=== PATIENT | male | born 1975 | race Caucasian/White ===

== ENCOUNTER 2020-01-19 01:33 | Inpatient (IN) | payer MEDICAID ==
[~2020-01-19] VITALS: Ht 180.3 cm; Wt 88.6 kg
[~2020-01-19 01:33] MED LIST: CEPH-357 PO; HYDR1TAB PO; IBUP-1051 PO; MELO-83 PO; NAPR-56 PO; clindamycin; norco; sulfa
[2020-01-19] MEDS ORDERED: CefTRIAXone 2gm/D5W 50ml BAG 50 ML IV ONE (03:10)
[2020-01-19] MEDS ORDERED: morphine 4 MG/ML inj SYRINge IV ONE (03:10)
[2020-01-19] MEDS ORDERED: normal saline 1000ML IV soln IV ONE (03:10)
[2020-01-19] MEDS ORDERED: vancomycin/NS 1 GM ADD-VANTAGE 250 ML IV ONE (03:10)
[2020-01-19] MEDS ORDERED: ondansetron/PF 4mg/2ml inj IV ONE (03:10)
[2020-01-19] MEDS ORDERED: iohexol 300mg/ml 100ml inj. ONE (03:51)
[2020-01-19 03:52] LABS: HEMATOCRIT 42.4 % (42.0-52.0); HEMOGLOBIN 14.2 g/dl (14.0-17.9); RED BLOOD COUNT 4.99 X10'6 (4.70-6.10); WHITE BLOOD COUNT 16.5 X10'3 (4.5-11.0)
[2020-01-19 03:53] LABS: BASOPHILS # (AUTO) 0.1 X10'3 (0-0.2); BASOPHILS % (AUTO) 0.8 % (0-1); EOSINOPHILS % (AUTO) 0.2 % (0-6); LYMPHOCYTES # (AUTO) 1.5 X10'3 (1.1-4.8); LYMPHOCYTES % (AUTO) 9.3 % (21-51); MEAN CORPUSCULAR HEMOGLOBIN 28.4 PG (27.0-31.0); MEAN CORPUSCULAR HGB CONC 33.5 g/dL (33.0-36.5); MEAN CORPUSCULAR VOLUME 84.9 FL (78-98); MEAN PLATELET VOLUME 6.7 FL (7.4-10.4); MONOCYTES # (AUTO) 1.6 X10'3 (0-0.9); MONOCYTES % (AUTO) 9.5 % (2-12); NEUTROPHILS # (AUTO) 13.2 X10'3 (1.8-7.7); NEUTROPHILS % (AUTO) 80.2 % (42-75); PLATELET COUNT 278 X10'3 (140-440); RED CELL DISTRIBUTION WIDTH 13.6 % (11.5-14.5)
[2020-01-19 04:09] LABS: ALANINE AMINOTRANSFERASE 32 U/L (12-78); ALBUMIN 3.5 G/DL (3.4-5.0); ALBUMIN/GLOBULIN RATIO 0.8 (1.1-1.5); ALKALINE PHOSPHATASE 70 IU/L (46-116); ANION GAP 8 (8-16); ASPARTATE AMINO TRANSFERASE 12 U/L (10-37); BILIRUBIN,TOTAL 0.8 MG/DL (0.1-1.0); BLOOD UREA NITROGEN 9 MG/DL (7-18); BUN/CREATININE RATIO 9.3 (5.4-32.0); CALCIUM 8.8 MG/DL (8.5-10.1); CHLORIDE 100 MMOL/L (99-107); CREATININE 0.97 MG/DL (0.60-1.10); GLUCOSE 124 MG/DL (70-104); MAGNESIUM 1.8 MG/DL (1.5-2.4); POTASSIUM 4.1 MMOL/L (3.5-5.1); SODIUM 137 MMOL/L (135-145); TOTAL CARBON DIOXIDE 29.1 MMOL/L (24-32); TOTAL PROTEIN 7.8 G/DL (6.4-8.2); eGFR 84 ML/MIN
[2020-01-19] MEDS ORDERED: LIDOcaine 1% w/epiNEPHrine 1:200,000 30ml vial IJ ONE (07:35)
[2020-01-19] MEDS ORDERED: TETanus/Pertussis (Acell)/Diphther VAC/PF (Tdap-Adult) 0.5ml syringe IMVAC ONE (07:35)
[2020-01-19] MEDS ORDERED: LIDOcaine 1% W/epiNEPHrine 1:200,000 10ml vial IJ ONE (07:35)
[2020-01-19 07:42] LABS: CLARITY,URINE CLEAR (Clear); COLOR,URINE STRAW (Yellow); GLUCOSE, URINE NEGATIVE (Neg); KETONES,URINE NEGATIVE (Neg); LEUKOCYTE ESTERASE ,URINE NEGATIVE (Neg); NITRITES, URINE NEGATIVE (Neg); OCCULT BLOOD,URINE NEGATIVE (Neg); PH,URINE 6.5 (4.8-8.0); PROTEIN,URINE NEGATIVE (Neg); UA COLLECTION TYPE VOIDED; UROBILINOGEN,URINE 0.2 E.U/dL (0.2-1.0)
[2020-01-19 07:52] LABS: URINE AMPHETAMINE SCREEN POSITIVE (Neg); URINE BARBITUATE SCREEN NEGATIVE (Neg); URINE BENZODIAZEPINES SCREEN NEGATIVE (Neg); URINE CANNABINOID SCREEN POSITIVE (Neg); URINE COCAINE SCREEN NEGATIVE (Neg); URINE METHADONE SCREEN NEGATIVE (Neg); URINE OPIATE SCREEN POSITIVE (Neg); URINE PHENCYCLIDINE SCREEN NEGATIVE (Neg)
[2020-01-19] MEDS ORDERED: NO HOME MEDS (09:17)
[2020-01-19] MEDS ORDERED: magnesium 2GM in 50ml NS 50 ML IV PRN (09:20)
[2020-01-19] MEDS ORDERED: potassium Cl 20 mEq SR tablet PO PRN ×2 (09:20)
[2020-01-19] MEDS ORDERED: morphine 2 MG/ML inj. syringe IV PRN ×2 (09:20)
[2020-01-19] MEDS ORDERED: magnesium 4gm in 100ml NS 100 ML IV PRN (09:20)
[2020-01-19] MEDS ORDERED: HYDROcodone/acetaminophen 5mg/325mg tablet PO PRN (09:20)
[2020-01-19] MEDS ORDERED: potassium CL 10mEq/100ml bag 100 ML IV PRN ×2 (09:20)
[2020-01-19] MEDS ORDERED: ondansetron/PF 4mg/2ml inj IV PRN (09:20)
[2020-01-19] MEDS ORDERED: acetaminophen 325mg tablet PO PRN ×2 (09:20)
[2020-01-19] MEDS ORDERED: magnesium Cl slow-release 64mg tablet PO PRN (09:20)
[2020-01-19 09:42] LABS: COLOR,SYNOVIAL FLUID OTHER
[2020-01-19] MEDS: normal saline 1000ml 1,000 ML IV SCH ×2 (09:42→20:39)
[2020-01-19 09:43] LABS: APPEARANCE,SYNOVIAL FLUID CLOUDY; SYN RBC 14900 /CU MM (0); SYN WBC 788 /CU MM (0-200)
[2020-01-19] MEDS ORDERED: LORazepam 1 MG tablet PO PRN (09:55)
[2020-01-19] MEDS ORDERED: LORazepam 2 mg/ml vial IV PRN (09:55)
--- NOTE | 2020-01-19 10:30 | NUR ---
Patient in room [facility]. I have received report from Tierra NEWELL from ED and had the opportunity to ask questions and assume patient care.
[2020-01-19] MEDS: HYDROcodone/acetaminophen 10/325mg tab PO PRN ×2 (14:21→20:33)
--- NOTE | 2020-01-19 18:30 | NUR ---
Patient in room [facility]. I have received report from OSIRIS Benson and had the opportunity to ask questions and assume patient care. Addendum: 01/19/20 at 1937 by Seth Rockwell RN Amended: Links added.
--- NOTE | 2020-01-19 18:36 | NUR ---
Problems reprioritized. Patient report given, questions answered & plan of care reviewed with Trinidad NEWELL.
[2020-01-19 19:00] VITALS: BP 130/87
[2020-01-19] MEDS: K and/or MAG REPLACEMENT MC SCH (20:00)
[2020-01-19] MEDS: lactobacillus rhamnosus 10,000 MMU CELLS/CAPSULE PO SCH (20:32)
[2020-01-19] MEDS: docusate sod 100mg capsule PO SCH (20:32)
[2020-01-19] MEDS: heparin, porcine 5000 units/ml vial SQ SCH (20:34)
[2020-01-19] MEDS: doxycycline inj 100 MG in normal saline 100ml IV soln 100 ML IV SCH (20:38)
[2020-01-19] MEDS ORDERED: nicotine 14mg patch - 24hr TD SCH (21:00)
[2020-01-19] MEDS ORDERED: temazepam 15mg capsule PO PRN (21:00)
[2020-01-19 23:30] VITALS: BP 100/51
--- NOTE | 2020-01-19 23:45 | NUR ---
Pt unsure if wants flu and pnemonia vaccine, states to ask him again in morning and will decide. Addendum: 01/19/20 at 2346 by Seth Rockwell RN Amended: Links added.
--- NOTE | 2020-01-20 01:03 | NUR ---
A person named Emely has called x2 requesting to speak with nurse and would like nurse to call her back. I asked pt if he wanted me to talk to her and is it okay to give her information. Pt states "No, I will call her" Addendum: 01/20/20 at 0105 by Seth Rockwell RN Amended: Links added.
[2020-01-20] MEDS: HYDROcodone/acetaminophen 10/325mg tab PO PRN ×3 (04:32→20:24)
[2020-01-20 05:15] LABS: BASOPHILS # (AUTO) 0.1 X10'3 (0-0.2); BASOPHILS % (AUTO) 0.7 % (0-1); EOSINOPHILS # (AUTO) 0.1 X10'3 (0-0.9); EOSINOPHILS % (AUTO) 0.8 % (0-6); HEMATOCRIT 40.2 % (42.0-52.0); HEMOGLOBIN 13.4 g/dl (14.0-17.9); LYMPHOCYTES # (AUTO) 1.9 X10'3 (1.1-4.8); LYMPHOCYTES % (AUTO) 11.6 % (21-51); MEAN CORPUSCULAR HGB CONC 33.4 g/dL (33.0-36.5); MEAN CORPUSCULAR VOLUME 86.7 FL (78-98); MONOCYTES # (AUTO) 1.5 X10'3 (0-0.9); MONOCYTES % (AUTO) 9.1 % (2-12); NEUTROPHILS # (AUTO) 12.8 X10'3 (1.8-7.7); NEUTROPHILS % (AUTO) 77.8 % (42-75); PLATELET COUNT 217 X10'3 (140-440); RED BLOOD COUNT 4.64 X10'6 (4.70-6.10); RED CELL DISTRIBUTION WIDTH 13.6 % (11.5-14.5); WHITE BLOOD COUNT 16.5 X10'3 (4.5-11.0)
[2020-01-20 05:22] LABS: ALANINE AMINOTRANSFERASE 23 U/L (12-78); ALBUMIN 2.8 G/DL (3.4-5.0); ALBUMIN/GLOBULIN RATIO 0.7 (1.1-1.5); ALKALINE PHOSPHATASE 59 IU/L (46-116); ANION GAP 9 (8-16); ASPARTATE AMINO TRANSFERASE 14 U/L (10-37); BILIRUBIN,TOTAL 0.9 MG/DL (0.1-1.0); BLOOD UREA NITROGEN 8 MG/DL (7-18); BUN/CREATININE RATIO 8.7 (5.4-32.0); CALCIUM 8.2 MG/DL (8.5-10.1); CHLORIDE 99 MMOL/L (99-107); CREATININE 0.92 MG/DL (0.60-1.10); GLUCOSE 100 MG/DL (70-104); MAGNESIUM 1.7 MG/DL (1.5-2.4); POTASSIUM 4.3 MMOL/L (3.5-5.1); SODIUM 134 MMOL/L (135-145); TOTAL CARBON DIOXIDE 26.3 MMOL/L (24-32); TOTAL PROTEIN 6.9 G/DL (6.4-8.2); eGFR 90 ML/MIN
[2020-01-20] MEDS: normal saline 1000ml 1,000 ML IV SCH ×2 (05:30→15:20)
--- NOTE | 2020-01-20 06:30 | NUR ---
Problems reprioritized. Patient report given, questions answered & plan of care reviewed with OSIRIS Mccullough. Addendum: 01/20/20 at 0630 by Seth Rockwell RN Amended: Links added.
--- NOTE | 2020-01-20 06:31 | NUR ---
Patient in room [facility]. I have received report from ghulam naik and had the opportunity to ask questions and assume patient care.
[2020-01-20 07:00] VITALS: BP 110/56
[2020-01-20] MEDS: K and/or MAG REPLACEMENT MC SCH ×2 (08:00→19:40)
[2020-01-20] MEDS ORDERED: nicotine 14mg patch - 24hr TD SCH (08:00)
[2020-01-20] MEDS: lactobacillus rhamnosus 10,000 MMU CELLS/CAPSULE PO SCH ×2 (09:16→19:44)
[2020-01-20] MEDS: pantoprazole 40mg Tablet.DR PO SCH (09:16)
[2020-01-20] MEDS: doxycycline inj 100 MG in normal saline 100ml IV soln 100 ML IV SCH (09:16)
[2020-01-20] MEDS: docusate sod 100mg capsule PO SCH ×2 (09:16→19:44)
[2020-01-20] MEDS: heparin, porcine 5000 units/ml vial SQ SCH ×2 (09:16→19:44)
[2020-01-20 11:00] VITALS: BP 113/50
[2020-01-20 14:30] VITALS: BP 112/68
[2020-01-20] MEDS: VANCOmycin 1250MG/NS 250ml Bag 250 ML IV SCH (16:16)
[2020-01-20] MEDS: ibuprofen tablet 400 MG TABLET PO SCH (17:01)
[2020-01-20] MEDS: nicotine 14mg patch - 24hr TD SCH (17:01)
--- NOTE | 2020-01-20 18:22 | NUR ---
Problems reprioritized. Patient report given, questions answered & plan of care reviewed with PRUDENCE RN.
--- NOTE | 2020-01-20 18:39 | NUR ---
Patient in room [facility]. I have received report from TALIA NEWELL and had the opportunity to ask questions and assume patient care.
[2020-01-20 20:00] VITALS: BP 108/53
[2020-01-21] VITALS: BP 120/60
[2020-01-21] MEDS: VANCOmycin 1250MG/NS 250ml Bag 250 ML IV SCH (00:36)
[2020-01-21] MEDS: normal saline 1000ml 1,000 ML IV SCH (00:36)
[2020-01-21] MEDS: HYDROcodone/acetaminophen 10/325mg tab PO PRN ×2 (02:32→08:01)
[2020-01-21 05:54] LABS: BASOPHILS % (AUTO) 0.4 % (0-1); EOSINOPHILS # (AUTO) 0.2 X10'3 (0-0.9); EOSINOPHILS % (AUTO) 2.2 % (0-6); HEMATOCRIT 35.8 % (42.0-52.0); HEMOGLOBIN 12.3 g/dl (14.0-17.9); LYMPHOCYTES # (AUTO) 1.4 X10'3 (1.1-4.8); LYMPHOCYTES % (AUTO) 15.6 % (21-51); MEAN CORPUSCULAR HGB CONC 34.2 g/dL (33.0-36.5); MEAN CORPUSCULAR VOLUME 84.8 FL (78-98); MEAN PLATELET VOLUME 7.8 FL (7.4-10.4); MONOCYTES % (AUTO) 11.8 % (2-12); PLATELET COUNT 246 X10'3 (140-440); RED BLOOD COUNT 4.23 X10'6 (4.70-6.10); RED CELL DISTRIBUTION WIDTH 13.6 % (11.5-14.5); WHITE BLOOD COUNT 8.6 X10'3 (4.5-11.0)
--- NOTE | 2020-01-21 06:22 | NUR ---
Problems reprioritized. Patient report given, questions answered & plan of care reviewed with TALIA NEWELL.
[2020-01-21 06:56] LABS: ALANINE AMINOTRANSFERASE 32 U/L (12-78); ALBUMIN 2.5 G/DL (3.4-5.0); ALBUMIN/GLOBULIN RATIO 0.6 (1.1-1.5); ALKALINE PHOSPHATASE 77 IU/L (46-116); ANION GAP 10 (8-16); ASPARTATE AMINO TRANSFERASE 21 U/L (10-37); BILIRUBIN,TOTAL 0.3 MG/DL (0.1-1.0); BLOOD UREA NITROGEN 8 MG/DL (7-18); BUN/CREATININE RATIO 10.4 (5.4-32.0); CALCIUM 8.1 MG/DL (8.5-10.1); CHLORIDE 104 MMOL/L (99-107); CREATININE 0.77 MG/DL (0.60-1.10); GLUCOSE 122 MG/DL (70-104); POTASSIUM 3.4 MMOL/L (3.5-5.1); SODIUM 139 MMOL/L (135-145); TOTAL CARBON DIOXIDE 25.5 MMOL/L (24-32); TOTAL PROTEIN 6.6 G/DL (6.4-8.2); eGFR > 90 ML/MIN
[2020-01-21] MEDS: lactobacillus rhamnosus 10,000 MMU CELLS/CAPSULE PO SCH (07:58)
[2020-01-21] MEDS: pantoprazole 40mg Tablet.DR PO SCH (07:58)
[2020-01-21] MEDS: docusate sod 100mg capsule PO SCH (07:58)
[2020-01-21] MEDS: heparin, porcine 5000 units/ml vial SQ SCH (07:59)
[2020-01-21] MEDS: nicotine 14mg patch - 24hr TD SCH (08:00)
[2020-01-21] MEDS: ibuprofen tablet 400 MG TABLET PO SCH (08:00)
[2020-01-21] MEDS: K and/or MAG REPLACEMENT MC SCH (08:10)
[2020-01-21 08:33] VITALS: BP 128/62
[2020-01-21 11:00] VITALS: BP 107/55
[2020-01-21] MEDS ORDERED: CLIN-5 PO (11:26)
[2020-01-21] MEDS ORDERED: PANT40TA54 PO (11:26)
[2020-01-21] MEDS ORDERED: IBUP-1984 PO (11:26)
--- NOTE | 2020-01-21 12:56 | NUR ---
PT DISCHARGED IN STABLE CONDITION. PT WALKED TO A FRIENDS HOUSE WHO WAS GOING TO GIVE HIM A RIDE TO PHARMACY. IV DC CANULA INTACT. ALL BELONGINGS IN HAND. FOLLOW UP INSTRUCTIONS GIVEN, PT STATES HE IS AWARE HE NEEDS TO FOLLOW UP WITH MD, AND COMPLETE ALL ABX. Addendum: 01/21/20 at 1258 by Latha Hart RN Amended: Links added.
[2020-01-22] MEDS ORDERED: VANCOMYCIN LEVEL IV ONE (00:30)
== END 2020-01-21 12:54 | disposition home or self-care (01) | DRG 383 ==
LOC: ER 01:34 → ED HOLD 09:17 → EDBEDREQ 09:50 → SUR 3N 10:25
PROVIDERS: ADMIT Internal Medicine; ATTEND Internal Medicine
DX: L03.113 Cellulitis of right upper limb (principal); F12.90 Cannabis use, unspecified, uncomplicated; M70.21 Olecranon bursitis, right elbow; Z87.891 Personal history of nicotine dependence; Z90.49 Acquired absence of other specified parts of digestive tract; F19.10 Other psychoactive substance abuse, uncomplicated
CPT/HCPCS: 10060; 36415; 73201; 76937; 80053; 80305; 81003; 83036; 83605; 83735; 84145; 85025; 87040; 87070; 87081; 89051; 90715; 96365; 97116; 97161; 99285; G0378; J0696; J1644; J2270; J2405; J3370; J3490; J7030; Q9967